=== PATIENT | female | born 1955 | race Caucasian/White ===

== ENCOUNTER 2016-05-05 15:06 | Outpatient (CLI) | payer MEDICAID | END 2016-05-05 15:07 | disposition home or self-care (01) | DX: G47.33 Obstructive sleep apnea (adult) (pediatric) (principal); G25.81 Restless legs syndrome; R03.0 Elevated blood-pressure reading, without diagnosis of hypertension ==

== ENCOUNTER 2016-06-07 13:26 | Outpatient (CLI) | payer MEDICAID | END 2016-06-07 13:27 | disposition home or self-care (01) | DX: G47.33 Obstructive sleep apnea (adult) (pediatric) (principal); G25.81 Restless legs syndrome ==